=== PATIENT | female | born 1980 | race Caucasian/White ===

== ENCOUNTER 2016-11-29 17:43 | Emergency (ER) | payer MEDICAID ==
[2016-11-29] MEDS ORDERED: DIPHENHYDRAMINE HCL IV 50 MG/ML VIAL IVP ONE (18:43)
[2016-11-29] MEDS ORDERED: KETOROLAC 30 MG/ML VIAL IVP ONE (18:43)
[2016-11-29] MEDS ORDERED: METOCLOPRAMIDE HCL 10 MG/2 ML VIAL IVP ONE (18:43)
[2016-11-29] MEDS ORDERED: 0.9 % SODIUM CHLORIDE 1000ML 1,000 ML IV SCH (18:45)
--- NOTE | 2016-11-29 18:45 | Emergency Department Record ---
History of Present Illness - General Chief complaint: Lower Extremity Pain Stated complaint: NAUSEA, PAIN IN RT LEG Time Seen by Provider: 11/29/16 18:43 Source: Patient Mode of Arrival: Ambulatory Limitations: No limitations - History of Present Illness Initial comments: 35 yo female presents to ED with several complaints; patient reports nausea that began last night without abdominal pain, headache symptoms that began this morning upon awakening, and back/neck pain symptoms that are radiating down her right leg. Patient Disposition Forms: Patient Portal Access Quality - Blood Pressure Screening Does Patient Have Any of the Following: No Systolic Measurement: ~
--- NOTE | 2016-11-29 18:53 | Emergency Department Record ---
History of Present Illness - General Chief Complaint: Lower Extremity Pain Stated Complaint: NAUSEA, PAIN IN RT LEG Time Seen by Provider: 11/29/16 18:43 Source: Patient Mode of Arrival: Ambulatory Limitations: No limitations - History of Present Illness Initial Comments: 35 yo female presents to ED with several complaints; patient reports nausea that began last night without abdominal pain, headache symptoms that began this morning upon awakening, and back/neck pain symptoms that are radiating down her right leg. Patient reports that she has suffered from headaches for the past 12 years, denies fevers, chills, neck stiffness, or change from her usual headache symptoms. Patient also reports a history of chronic neck and back pain symptoms that she is currently undergoing physical therapy for, reports that she has been taking Percocet and Ultram at home for her symptoms. MD Complaint: Headache Onset/Timin -: Days(s) Onset Description: Gradual Location: Diffuse Severity: Moderate Quality: Aching Consistency: Constant Improves With: Nothing Worsens With: None Associated Symptoms: Nausea Treatments Prior to Arrival: Prescription analgesic - Related Data Allergies Allergy/AdvReac Type Severity Reaction Status Date / Time hydrocodone AdvReac NAUSEA AND Verified 11/29/16 18:59 VOMITING Review of Systems Constitutional: Denies: Chills, Fever, Malaise, Night sweats Eyes: Denies: Eye discharge, Eye pain ENT: Denies: Congestion, Ear pain, Epistaxis Respiratory: Denies: Cough, Dyspnea Cardiovascular: Denies: Chest pain, Dyspnea on exertion Endocrine: Denies: Fatigue, Heat or cold intolerance Gastrointestinal: Reports: Nausea, Vomiting (x 1). Denies: Abdominal pain Genitourinary: Denies: Incontinence, Retention Musculoskeletal: Denies: Arthralgia, Back pain, Gout, Joint swelling Skin: Denies: Bruising, Change in color Neurological: Reports: Headache. Denies: Abnormal gait, Confusion, Numbness, Tingling Psychiatric: Denies: Anxiety Hematological/Lymphatic: Denies: Anemia, Blood Clots Physical Exam - General General Appearance: Alert, Oriented x3, Cooperative, No acute distress Limitations: No limitations - Head Head exam: Atraumatic, Normocephalic, Normal inspection Head exam detail: negative: Abrasion, Contusion, Nichols's sign, General tenderness, Hematoma, Laceration - Eye Eye exam: Normal appearance. negative: Conjunctival injection, Periorbital swelling, Periorbital tenderness, Scleral icterus - ENT Ear exam: negative: Auricular hematoma, Auricular trauma Nasal Exam: negative: Active bleeding, Discharge, Dried blood, Foreign body Mouth exam: negative: Drooling, Laceration, Muffled voice, Tongue elevation - Neck Neck exam: Normal inspection. negative: Meningismus, Tenderness - Respiratory Respiratory exam: Normal lung sounds bilaterally. negative: Respiratory distress, Rhonchi, Stridor, Wheezes - Cardiovascular Cardiovascular Exam: Regular rate, Normal rhythm, Normal heart sounds - GI/Abdominal GI/Abdominal exam: Soft. negative: Rebound, Rigid, Tenderness - Rectal Rectal exam: Deferred - exam: Deferred - Extremities Extremities exam: negative: Calf tenderness, Pedal edema, Tenderness - Back Back exam: Denies: CVA tenderness (R), CVA tenderness (L) - Neurological Neurological exam: Alert, Normal gait, Oriented X3 - Psychiatric Psychiatric exam: Other (tearful on examination) - Skin Skin exam: Normal color. negative: Abrasion Type of lesion: negative: abrasion Course - Reevaluation(s) Reevaluation #1: 11/29/16 18:50 I personally brought the patient back from the waiting room to room #2, patient was noted to be hugging her friend, conversational, and laughing before ambulating to the the room. Upon entering the room, the patient immediately burst into tears stating that her headache is severe, and when asked what symptoms was troubling her the most of all of her complaints, started yelling "all of them!". I discussed with the patient that I would be unable to address all of her complaints in the ED today, but would assist in attempting to improve her nausea and headache symptoms as her back/sciatica pain symptoms are chronic and she is undergoing current treatment for these issues. Reevaluation #2: 11/29/16 19:57 Patient reassessed, currently sleeping. Patient easily arouses to voice/touch, reports that her headache symptoms have resolved and that her nausea symptoms have resolved. Patient appears stable for discharge at this time. Disposition Disposition: Discharge Clinical Impression: Nausea Headache Qualifiers: Headache type: unspecified Headache chronicity pattern: acute headache Intractability: not intractable Qualified Code(s): R51 - Headache Disposition: Home, Self-Care Condition: (2) Stable Instructions: Acute Headache (ED) Additional Instructions: Return to ED if your symptoms worsen or if you have any concerns. Follow-up with your family doctor in 3-5 days as directed. Continue your home medications as directed for treatment of your chronic back pain symptoms. Forms: Patient Portal Access Time of Disposition: 19:59 Quality - Quality Measures Quality Measures: N/A - Blood Pressure Screening Does Patient Have Any of the Following: No Blood Pressure Classification: Pre-Hypertensive BP Reading Systolic Measurement: 122 Diastolic Measurement: 66 Screening for High Blood Pressure: < Pre-Hypertensive BP, F/U Documented > [ G8950] Pre-Hypertensive Follow-up Interventions: Referral to alternative/primary care provider.
== END 2016-11-29 20:10 | disposition home or self-care (01) ==
LOC: ER 17:43
DX: R51 Headache (principal); R11.0 Nausea; M79.604 Pain in right leg
CPT/HCPCS: 99284 ×2; 96374; 96375; J1885; J1200; J2765; J7030

== ENCOUNTER 2018-11-12 12:23 | Emergency (ER) | payer MEDICAID ==
[2018-11-12] MEDS ORDERED: ACETAMINOPHEN 325 MG TAB PO ONE (13:06)
--- NOTE | 2018-11-12 13:11 | Emergency Department Record ---
History of Present Illness - General Chief complaint: Extremity Problem Stated complaint: FINGER INFECTION Time Seen by Provider: 11/12/18 13:00 Source: Patient Mode of Arrival: Ambulatory Limitations: No limitations - History of Present Illness Initial comments: The patient is here due to a R 2nd finger injury from 2 weeks ago. She accidentally cut it with a knife but did not seek care. Now it has not healed completely and is still painful. She state her Td is UTD. MD Complaint: Extremity pain Onset/Timin -: Week(s) Location: Right, Hand History of Same: No Severity scale (1-10): 7 Consistency: Constant Improves with: Nothing - Related Data Home Medications Medication Instructions Recorded Confirmed Last Taken Cyclobenzaprine HCl [Flexeril] 10 mg PO TID 11/12/18 11/12/18 Unknown Pregabalin [Lyrica] 150 mg PO BID 11/12/18 11/12/18 Unknown Previous Rx's Medication Instructions Recorded Cephalexin [Keflex] 500 mg PO QID #28 cap 11/12/18 Allergies Allergy/AdvReac Type Severity Reaction Status Date / Time hydrocodone AdvReac NAUSEA AND Verified 11/29/16 18:59 VOMITING Travel Screening - Travel/Exposure Within Last 30 Days Have you traveled within the last 30 days?: No Review of Systems Constitutional: Denies: Chills, Fever Past Medical History - SOCIAL HISTORY Smoking Status: Current every day smoker - RESPIRATORY Hx Respiratory Disorders: Yes Hx Bronchitis: Yes - CARDIOVASCULAR Hx Cardio Disorders: No - NEURO Hx Neuro Disorders: Yes Hx Headaches: Yes - GI Hx GI Disorders: No - Hx Genitourinary Disorders: Yes Hx Bladder Problem: Yes - ENDOCRINE Hx Endocrine Disorders: No - MUSCULOSKELETAL Hx Musculoskeletal Disorders: Yes - PSYCH Hx Psych Problems: No - HEMATOLOGY/ONCOLOGY Hx Hematology/Oncology Disorders: No Family Medical History Any Significant Family History?: No Physical Exam - General General Appearance: Alert, Cooperative, No acute distress - Head Head exam: Atraumatic - Eye Eye exam: Normal appearance - Extremities Extremities exam: Full ROM (There is full ROM of the R 2nd finger with mild pain.), Tenderness (There is tenderness to the R 2nd finger at the PIP joint with slight diffuse edema. ). negative: Normal inspection (There is swelling to the R 2nd finger at the PIP joint with a very slightly open wound over the mid portion of the area dorsally on the radial side.) Course Vital Signs 11/12/18 12:55 Temperature 97.7 F Pulse Rate 84 Respiratory 18 Rate Blood Pressure 122/66 Pulse Ox 99 - Reevaluation(s) Reevaluation #1: After being here in the ER for an hour the patient also requested that I evaluate her chronic back issue. She has had chronic back pain for many months and years and states the pain seems to be worse for the last few weeks. She denies any leg numbness, weakness, or any bowel or bladder incontinence. She is able to walk without difficulty and is only on OTC pain medicines. On exam her low back is nontender with mild pain with SLR on the L only at 90 degrees. Motor and sensory are 5/5 bilaterally with normal DTR's in the patella and achilles areas. She is able to ambulate with no difficulty. 11/12/18 13:55 Reevaluation #2: I did explain the need to F/U with her PCP next week for further evaluation. The patient understands and will comply. 11/12/18 14:09 Medical Decision Making - Data Complexity MDM Data: X-Ray Ordered and/or Reviewed - Radiology Data Radiology results: Report reviewed (R 2nd finger: Neg for any acute changes.) Disposition Disposition: Discharge Clinical Impression: Finger injury Qualifiers: Encounter type: initial encounter Laterality: right Qualified Code(s): S69.91XA - Unspecified injury of right wrist, hand and finger(s), initial encounter Disposition: Home, Self-Care Condition: (2) Stable Instructions: Finger Laceration (ED) Additional Instructions: Please keep clean and dry and take the Keflex. Please see your family doctor for recheck next week and for a possible hand surgery referral. Return to the ER for any worsening issues. Prescriptions: Cephalexin [Keflex] 500 mg PO QID #28 cap Forms: Patient Portal Access Time of Disposition: 14:12 Quality - Quality Measures Quality Measures: N/A - Blood Pressure Screening View Details: Yes Does Patient Have Any of the Following: No Blood Pressure Classification: Pre-Hypertensive BP Reading Systolic Measurement: 122 Diastolic Measurement: 66 Screening for High Blood Pressure: < Pre-Hypertensive BP, F/U Documented > [G8950] Pre-Hypertensive Follow-up Interventions: Referral to alternative/primary care provider.
[2018-11-12] MEDS ORDERED: KETOROLAC 30 MG/ML VIAL IM ONE (13:54)
== END 2018-11-12 14:32 | disposition home or self-care (01) ==
LOC: ER 12:23
DX: S61.210D Laceration without foreign body of right index finger without damage to nail, subsequent encounter (principal); W26.0XXD Contact with knife, subsequent encounter; G89.29 Other chronic pain; M54.5 Low back pain
CPT/HCPCS: 73140; 96372; 99283; 99284; J1885